=== PATIENT | male | born 1975 | race Asian ===

== ENCOUNTER 2022-05-24 09:52 | Emergency (ER) | payer MEDICAID ==
[~2022-05-24] VITALS: Ht 167.6 cm; Wt 76.0 kg
[~2022-05-24 09:52] MED LIST: CLOZ100T32 PO; DIVA-112 PO; QUET400T PO
[2022-05-24] MEDS ORDERED: ETOMIDATE 2 MG/ML 10 ML VIAL IV ONE (09:54)
[2022-05-24] MEDS ORDERED: EPINEPHrine 1:10,000 [1 MG/10 ML] SYRINGE IVP ONE (09:54)
[2022-05-24] MEDS ORDERED: SODIUM BICARBONATE [ADULT] 8.4% 50 MEQ/50 ML SYRINGE IVP ONE (09:54)
[2022-05-24] MEDS ORDERED: NALOXONE HCL 1 MG/ML 2 ML SYRINGE ONE (10:04)
[2022-05-24] MEDS ORDERED: SODIUM CHLORIDE 0.9% 1,000 ML IV ONE (10:15)
[2022-05-24] MEDS ORDERED: NALOXONE HCL 1 MG/ML 2 ML SYRINGE IVP ONE (10:15)
[2022-05-24 10:21] LABS: GLUCOMETER DEV NAME(LOC) ERT.5; GLUCOSE,POINT OF CARE 172 MG/DL (70-110)
[2022-05-24 10:25] LABS: BASOPHILS % (AUTO) 0.4 % (0.0-2.0); EOSINOPHILS % (AUTO) 1.5 % (1.0-6.0); HEMOGLOBIN 13.6 g/dL (13.5-17.5); LYMPHOCYTES # (AUTO) 1.5 K/uL (1.0-4.8); LYMPHOCYTES % (AUTO) 10.7 % (22.0-44.0); MEAN CORPUSCULAR HEMOGLOBIN 29.4 pg (26.0-34.0); MEAN CORPUSCULAR HGB CONC 33.1 G/dL (31.0-37.0); MEAN CORPUSCULAR VOLUME 89 fL (80-100); MONOCYTES # (AUTO) 0.9 K/uL (0.1-1.0); MONOCYTES % (AUTO) 6.5 % (2.0-9.0); NEUTROPHILS # (AUTO) 11.1 K/uL (1.8-7.7); NEUTROPHILS % (AUTO) 80.9 % (40.0-70.0); PLATELET COUNT (AUTO) 342 K/uL (150-450); RED BLOOD CELL COUNT(AUTO) 4.61 MIL/uL (4.50-5.90); RED CELL DISTRIBUTION WIDTH 13.4 % (11.5-14.5)
[2022-05-24 10:36] LABS: ANION GAP 18 mmol/L (8-16); CALCIUM, TOTAL 9.5 mg/dL (8.8-10.5); CARBON DIOXIDE 19 mmol/L (22-29); CHLORIDE 95 mmol/L (98-107); CREATININE 1.46 mg/dL (0.60-1.30); GLUCOSE,RANDOM 177 mg/dL (70-110); POTASSIUM 3.6 mmol/L (3.5-5.1); SODIUM SERUM 132 mmol/L (136-145); UREA NITROGEN, BLOOD 14 mg/dL (7-18)
[2022-05-24 10:38] LABS: GLOMERULAR FILTR. RATE CALC 52 mL/min (>60); INR 0.9 (0.9-1.1); PROTHROMBIN TIME 10.1 SEC (9.4-11.6)
[2022-05-24 10:44] LABS: AMMONIA 82 umol/L (11-32)
[2022-05-24] MEDS ORDERED: SUCCINYLCHOLINE CHLORIDE 20 MG/ML 10 ML VIAL ONE (10:46)
[2022-05-24 10:51] LABS: LACTIC ACID 11.7 mmol/L (0.4-2.0)
[2022-05-24 10:56] VITALS: BP 100/55
[2022-05-24 11:01] LABS: ALANINE AMINOTRANSFERASE 32 U/L (12-78); ALBUMIN 4.3 g/dL (3.4-5.0); ALKALINE PHOSPHATASE 71 U/L (46-116); ASPARTATE AMINOTRANSFERASE 21 U/L (15-37); BILIRUBIN,TOTAL 0.5 mg/dL (0.1-1.0); CREATINE KINASE, TOTAL ONLY 87 U/L (39-308); TOTAL PROTEIN, SERUM 8.4 g/dL (6.4-8.2)
[2022-05-24] MEDS ORDERED: DIPH25CA85 PO (11:55)
[2022-05-24] MEDS ORDERED: PRAZ1 PO (11:55)
[2022-05-24] MEDS ORDERED: LITH600C5 PO (11:55)
[2022-05-24] MEDS ORDERED: GEMF-77 PO (11:55)
[2022-05-24] MEDS ORDERED: TRAZ-257 PO (11:55)
[2022-05-24] MEDS ORDERED: OLAN10TA74 PO (11:55)
== END 2022-05-24 15:37 ==
LOC: EMS 09:53
DX: R40.4 Transient alteration of awareness (principal); I46.9 Cardiac arrest, cause unspecified; F31.9 Bipolar disorder, unspecified; F20.9 Schizophrenia, unspecified; Z86.69 Personal history of other diseases of the nervous system and sense organs
CPT/HCPCS: 31500; 36415; 71045; 80053; 82140; 82550; 82962; 83605; 84484; 85025; 85610; 85730; 92950; 93005; 96361; 96374; 99291; G0238; J0171; J2310; J3490 ×2; J0330